=== PATIENT | male | born 1960 | race Caucasian/White ===

== ENCOUNTER 2020-07-14 13:05 | Emergency (ER) | payer MEDICAID ==
[~2020-07-14] VITALS: Ht 172.7 cm; Wt 84.4 kg
[2020-07-14 13:15] VITALS: Ht 172.7 cm; Wt 84.4 kg
[2020-07-14 15:15] LABS: BASOPHIL % 0.5 % (0-2); PLATELET COUNT 147 x10^3mcL (130-400); RED CELL DISTRIBUTION WIDTH 12.6 % (11.5-14.5)
[2020-07-14 15:24] LABS: CALCIUM 9.1 mg/dL (8.5-10.1); CARBON DIOXIDE 30.2 mmol/L (21-32); CHLORIDE SERUM 103 mmol/L (98-107); CREATININE SERUM 0.9 mg/dL (0.7-1.3); GFR1 > 60 mL/min; GLUCOSE SERUM 93 mg/dL (74-106); POTASSIUM SERUM 4.2 mmol/L (3.5-5.1); SODIUM SERUM 136 mmol/L (136-145)
[2020-07-14 15:29] LABS: ALBUMIN 4.2 g/dL (3.4-5.0); ALKALINE PHOSPHATASE 78 U/L (46-116); ALT/SGPT 72 U/L (16-63); AST/SGOT 59 U/L (15-37); BILIRUBIN TOTAL 0.6 mg/dL (0.20-1.00); CHOLESTEROL 158 mg/dL (<200)
[2020-07-14 15:47] LABS: AMPHETAMINE QUAL UR NONE DETECTED (See below)
[2020-07-14 17:00] VITALS: BP 124/74
== END 2020-07-14 17:00 | disposition home or self-care (01) ==
LOC: ED 13:05
PROVIDERS: Emergency Medicine
DX: R42 Dizziness and giddiness (principal); R51.9 Headache, unspecified; I10 Essential (primary) hypertension; R53.1 Weakness
CPT/HCPCS: G0480; J2405; J7030; J8597